=== PATIENT | male | born 1960 | race Caucasian/White ===

== ENCOUNTER → 2020-06-19 | Outpatient (CLI) | payer OTHER ==
[~2020-06-19] MED LIST: IBUPROFEN 800800 M1 PO
== END ==
LOC: M.PUL 07:49 → M.SLEEPLAB 09:00
PROVIDERS: ATTEND Internal Medicine Critical Care Medicine
DX: G47.10 Hypersomnia, unspecified (principal)

== ENCOUNTER → 2020-09-20 | Outpatient (CLI) | payer OTHER ==
--- NOTE | 2020-09-23 23:37 | PF ---
[place] [id number] PULMONARY FUNCTION REPORT Name: ANTOINETTE OCONNELL Room: [facility]#: [id number] Admission: 09/20/20 Attend Phys: Wolf Patterson MD Discharge: Date of : 62 Report #: [id number] THIS REPORT FOR: cc: Nettie Kaplan Linda J. DO Pervez, Adeel MD ~ DATE OF SERVICE: 09/20/2020 The FEV1/FVC ratio is normal at 79% with an FVC normal at 99%. The FEV1 is also normal at 101%. The AFT67-78 is also normal at 129%. There is no significant increase in any of these values after the administration of a bronchodilator. The patient's FEV1 is noted to be 3.60 liters, this does not increase after the administration of a bronchodilator. The total lung capacity is normal at 86% with a residual volume decreased to 58%. The DLCO as adjusted for hemoglobin is normal at 88%. IMPRESSION: These are essentially normal pulmonary function tests with the exception of the residual volume being decreased to 58%. This could be a normal variant or could indicate mild restriction. <ELECTRONICALLY SIGNED> By: Wolf Patterson MD 09/23/20 [id number] Patterson MD /levi
== END ==
LOC: M.PUL 08:54
PROVIDERS: ATTEND Internal Medicine Critical Care Medicine
DX: J45.30 Mild persistent asthma, uncomplicated (principal)

== ENCOUNTER → 2020-09-20 | Outpatient (CLI) | payer OTHER | LOC: M.SLEEPLAB 20:57 | PROVIDERS: ATTEND Internal Medicine Critical Care Medicine | DX: G47.30 Sleep apnea, unspecified (principal); G47.34 Idiopathic sleep related nonobstructive alveolar hypoventilation ==

== ENCOUNTER → 2020-10-24 | Outpatient (CLI) | payer OTHER ==
--- NOTE | 2020-10-24 11:35 | 2DMMODE ---
[place] [address] 2 D/M-MODE ECHOCARDIOGRAM Name: ANTOINETTE OCONNELL Room: [facility]#: [id number] Admission: 10/24/20 Attend Phys: Wolf Patterson MD Discharge: Date of : 62 Date of Service: 10/24/20 1135 Report #: [id number] THIS REPORT FOR: cc: Nettie Kaplan Linda J. DO Blick,Osvaldo Kelley MD [facility] ~ APPROVED REPORT Study performed: 10/24/2020 07:45:47 EXAM: Comprehensive 2D, Doppler, and color-flow Echocardiogram Patient Location: Out-Patient BSA: 2.15 HR: 72 bpm BP: 127/72 mmHg Other Information Study Quality: Good Indications Dyspnea 2D Dimensions IVSd: 12.48 (7-11mm) LVOT Diam: 20.15 (18-24mm) LVDd: 47.24 mm PWd: 11.77 (7-11mm) Ascending Ao: 27.54 (22-36mm) LVDs: 25.81 (25-40mm) Aortic Root: 29.94 mm Volumes Left Atrial Volume (Systole) LA ESV Index: 19.30 mL/m2 Aortic Valve AoV Peak Jin.: 1.53 m/s AO Peak Gr.: 9.41 mmHg LVOT Max P.80 mmHg AO Mean Gr.: 4.69 mmHg LVOT Mean P.10 mmHg LVOT Max V: 1.10 m/s AO V2 VTI: 25.78 cm LVOT Mean V: 0.65 m/s JINA (VTI): 2.79 cm2 LVOT V1 VTI: 22.53 cm Mitral Valve E/A Ratio: 1.21 [place] [address] 2 D/M-MODE ECHOCARDIOGRAM Name: ANTOINETTE OCONNELL Room: [facility]#: [id number] Admission: 10/24/20 Attend Phys: Wolf Patterson MD Discharge: Date of : 62 Date of Service: 10/24/20 1135 Report #: [id number] MV Decel. Time: 163.68 ms MV E Max Jin.: 0.86 m/s MV PHT: 47.47 ms MVA (PHT): 4.63 cm2 TDI E/Lateral E': 6.14 E/Medial E': 7.17 Medial E' Jin.: 0.12 m/s Lateral E' Jin.: 0.14 m/s Pulmonary Valve PV Peak Jin.: 1.14 m/s PV Peak Gr.: 5.20 mmHg Left Ventricle The left ventricle is normal size. There is normal LV segmental wall motion. Mild concentric left ventricular hypertrophy. Left ventricular systolic function is normal. The left ventricular ejection fraction is within the normal range. LVEF is 55-60%. The left ventricular diastolic function is normal. Right Ventricle The right ventricle is normal size. The right ventricular systolic function is normal. Atria The left atrium size is normal. The right atrium size is normal. Aortic Valve The aortic valve is normal in structure. No aortic regurgitation is present. There is no aortic valvular stenosis. Mitral Valve The mitral valve is normal in structure. Trace mitral regurgitation. No evidence of mitral valve stenosis. Tricuspid Valve The tricuspid valve is normal in structure. There is trace tricuspid valve regurgitation noted. Pulmonic Valve The pulmonary valve is normal in structure. There is no pulmonic valvular regurgitation. Great Vessels The aortic root is normal in size. IVC [place] [address] 2 D/M-MODE ECHOCARDIOGRAM Name: ANTOINETTE OCONNELL Room: [facility]#: [id number] Admission: 10/24/20 Attend Phys: Wolf Patterson MD Discharge: Date of : 62 Date of Service: 10/24/20 1135 Report #: [id number] collapses >50% with inspiration. Pericardium There is no pericardial effusion. <Conclusion> Mild concentric left ventricular hypertrophy. LVEF is 55-60%. <ELECTRONICALLY SIGNED> By: Osvaldo Zhao MD, [facility] 10/24/20 1135 1135 1135 Osvaldo Zhao MD, [facility] /INF
== END ==
LOC: M.CRD 07:36
PROVIDERS: ATTEND Internal Medicine Critical Care Medicine
DX: R06.02 Shortness of breath (principal)

== ENCOUNTER → 2020-12-20 | Outpatient (CLI) | payer OTHER | LOC: M.CT 11-23 08:00 | PROVIDERS: ATTEND Internal Medicine Critical Care Medicine | DX: R91.1 Solitary pulmonary nodule (principal) ==

== ENCOUNTER → 2021-06-12 | Outpatient (CLI) | payer OTHER | LOC: M.CT 14:42 | PROVIDERS: ATTEND Internal Medicine Critical Care Medicine | DX: R91.8 Other nonspecific abnormal finding of lung field (principal); K76.0 Fatty (change of) liver, not elsewhere classified ==